=== PATIENT | male | born 1945 | race Caucasian/White ===

== ENCOUNTER → 2021-04-14 | Outpatient (CLI) | payer MEDICARE, OTHER ==
[~2021-04-14] MED LIST: AMLODIPINE BESYL5 MG PO; ECOTRIN81 MG PO; FERROUS SULFAT325 M2 PO; FLONASE 0.05% N16 GM; HYDROCHLOROTHIA25 MG PO; LIPITOR TAB 2020 MG PO; LORTAB 7.5-3251 EACH PO; LOTENSIN TAB 1010 MG PO; NIACIN250 MG PO; NORCO 5-325 TA1 EACH PO; OMEPRAZOLE20 MG PO; PROSCAR5 MG PO; TIZANIDINE HCL4 MG PO; ZOFRAN ODT 4 MG4 MG PO
== END ==
LOC: HEART 5 08:20
DX: I25.10 Atherosclerotic heart disease of native coronary artery without angina pectoris (principal); R07.9 Chest pain, unspecified; R06.02 Shortness of breath; Z95.1 Presence of aortocoronary bypass graft; I07.1 Rheumatic tricuspid insufficiency; R94.39 Abnormal result of other cardiovascular function study
CPT/HCPCS: 78452; 93306; A9502; J2785

== ENCOUNTER 2021-07-16 02:38 | Observation (INO) | payer MEDICARE, OTHER ==
[~2021-07-16] VITALS: Ht 167.6 cm; Wt 97.1 kg
[~2021-07-16 02:38] MED LIST changes: -NIACIN250 MG PO; +NIACIN500 M1 PO
[2021-07-16 02:54] LABS: HEMOGLOBIN 16.2 gm/dl (14.0-17.5); RED BLOOD COUNT 5.14 M/UL (4.20-5.50); WHITE BLOOD COUNT 9.7 K/UL (4.5-11.0)
[2021-07-16 03:21] LABS: BUN/CREATININE RATIO 15 (0-10)
[2021-07-16] MEDS ORDERED: VITAMIN D325 MCG PO (09:29)
[2021-07-16] MEDS ORDERED: ISOSORBIDE MONO60 MG PO (09:29)
[2021-07-16] MEDS ORDERED: NITROGLYCERIN0.4 MG SL (09:30)
[2021-07-17 02:19] LABS: HEMOGLOBIN 14.6 gm/dl (14.0-17.5); RED BLOOD COUNT 4.7 M/UL (4.20-5.50)
[2021-07-17 02:47] LABS: BUN/CREATININE RATIO 12 (0-10)
[2021-07-17] MEDS ORDERED: CLOPIDOGREL75 MG PO (09:47)
[2021-07-17] MEDS ORDERED: LOPRESSOR 25 MG25 MG PO (09:49)
[2021-07-17] MEDS ORDERED: POTASSIUM CHLO10 ME2 PO (10:00)
== END 2021-07-17 12:25 | disposition home or self-care (01) ==
LOC: ER1 02:38 → CDU 04:15 → PROG CARE 12:34
PROVIDERS: Emergency Medicine; ADMIT Internal Medicine
PROC: 02703ZZ Dilation of Coronary Artery, One Artery, Percutaneous Approach (ICD-10-PCS; principal; 2021-07-16)
PROC: 4A023N8 Measurement of Cardiac Sampling and Pressure, Bilateral, Percutaneous Approach (ICD-10-PCS; 2021-07-16)
PROC: B2111ZZ Fluoroscopy of Multiple Coronary Arteries using Low Osmolar Contrast (ICD-10-PCS; 2021-07-16)
PROC: B2131ZZ Fluoroscopy of Multiple Coronary Artery Bypass Grafts using Low Osmolar Contrast (ICD-10-PCS; 2021-07-16)
DX: I25.110 Atherosclerotic heart disease of native coronary artery with unstable angina pectoris (principal); I21.4 Non-ST elevation (NSTEMI) myocardial infarction; T82.898A Other specified complication of vascular prosthetic devices, implants and grafts, initial encounter; I11.9 Hypertensive heart disease without heart failure; E87.6 Hypokalemia; E66.01 Morbid (severe) obesity due to excess calories; E78.5 Hyperlipidemia, unspecified; N40.0 Benign prostatic hyperplasia without lower urinary tract symptoms; D50.9 Iron deficiency anemia, unspecified; Z68.36 Body mass index [BMI] 36.0-36.9, adult; Z20.822 Contact with and (suspected) exposure to COVID-19; Z95.1 Presence of aortocoronary bypass graft; Z79.82 Long term (current) use of aspirin; Z79.51 Long term (current) use of inhaled steroids; Z79.899 Other long term (current) drug therapy; Y83.2 Surgical operation with anastomosis, bypass or graft as the cause of abnormal reaction of the patient, or of later complication, without mention of misadventure at the time of the procedure
CPT/HCPCS: 36415; 71045; 80048; 80053; 82550; 82553; 83690; 83735; 83874; 83880; 84100; 84484; 85025; 85347; 85610; 85730; 92920; 93005; 96372; 99152; 99153; 99285; C1725; C1769; C1874; C1887; C1894; G0378; J1644; J1650; J2250; J3010; J7040; Q9967; U0002

== ENCOUNTER 2021-08-20 13:30 | Emergency (ER) | payer MEDICARE, OTHER ==
[~2021-08-20 13:30] MED LIST changes: +CLOPIDOGREL75 MG PO; +ISOSORBIDE MONO60 MG PO; +LOPRESSOR 25 MG25 MG PO; +NITROGLYCERIN0.4 MG SL; +POTASSIUM CHLO10 ME2 PO; +VITAMIN D325 MCG PO
[2021-08-20 14:16] LABS: HEMOGLOBIN 14.6 gm/dl (14.0-17.5); RED BLOOD COUNT 4.68 M/UL (4.20-5.50); WHITE BLOOD COUNT 7.4 K/UL (4.5-11.0)
[2021-08-20 14:39] LABS: BUN/CREATININE RATIO 18 (0-10)
== END 2021-08-22 02:10 | disposition short-term general hospital (02) ==
LOC: ER1 13:30
PROVIDERS: Preventive Medicine Occupational Medicine
DX: I25.110 Atherosclerotic heart disease of native coronary artery with unstable angina pectoris (principal); I10 Essential (primary) hypertension; E78.5 Hyperlipidemia, unspecified; Z95.1 Presence of aortocoronary bypass graft; Z20.822 Contact with and (suspected) exposure to COVID-19
CPT/HCPCS: 71045; 80048; 81001; 82550; 82553; 82962; 83874; 83880; 84484; 85025; 85652; 86140; 87086; 93005; 99285; U0002